=== PATIENT | female | born 1950 | race Caucasian/White ===

== ENCOUNTER → 2016-08-27 | Outpatient (CLI) | payer MEDICARE ==
--- NOTE | 2016-08-27 11:06 | KCIC ---
PROCEDURE Maxillofacial bone CT without contrast. HISTORY Chronic sinusitis. TECHNIQUE Computed tomographic images of the maxillofacial bones were obtained without contrast. One or more of the following individualized dose reduction techniques were utilized for this examination: 1. Automated exposure control; 2. Adjustment of the mA and/or kV according to patient size; 3. Use of iterative reconstruction technique. COMPARISON 07/26/2014 FINDINGS There is severe maxillary and ethmoid and moderate frontal and sphenoid sinus mucosal thickening. There is complete opacification of the left maxillary sinus. There is evidence of prior bilateral maxillary antrostomy/uncinectomy surgery. There is slight nasal septal deviation. There is paranasal sinus wall thickening due to the sequela of chronic sinusitis. There is a small amount of fluid within the left mastoid air cells. The temporomandibular joints are intact. The orbits and visualized portions of the calvarium and brain are unremarkable. IMPRESSION 1. Severe chronic pansinusitis, increased compared to the prior study. This primarily involves the left maxillary and bilateral ethmoid sinuses. 2. Findings consistent with interval maxillary antrostomy/uncinectomy surgery. Electronically signed by: Ana Bernal (Aug 27, 2016 11:05:14)
== END | disposition home or self-care (01) ==
LOC: KCIC CT 10:24
PROVIDERS: ATTEND Otolaryngology
DX: J32.9 Chronic sinusitis, unspecified (principal)
CPT/HCPCS: 70486

== ENCOUNTER 2019-03-06 08:49 | Emergency (ER) | payer MEDICARE ==
[~2019-03-06] VITALS: Ht 170.2 cm; Wt 59.0 kg
--- NOTE | 2019-03-06 09:23 | PHYS DOC ---
Past Medical History Past Medical History: Diabetes-Type II, Hypertension Additional Past Medical Histor: PULMONARY FIBROSIS, Past Surgical History: Other Additional Past Surgical Histo: NOSE AND THROAT SURGERY Alcohol Use: None Drug Use: None Adult General Chief Complaint Chief Complaint: MECHANICAL FALL [facility] HPI Patient is a 68 year old female who presents after falling about 1:30 this morning. The patient states that she went outside to take the trash out, and then at that point she went back inside a [place] tripped or she fell and hit her head on a pressor and was seeing stars, feeling nauseous, had a positive loss of consciousness, does not remember the accident. Family states she was vomiting to 4 AM. At this time she denies any pain and states is all she does not move her pain as 0 out of 10 in severity. The patient does state that she's been having some pain on her left side by her ribs. She denies taking blood thinners. She is on home oxygen, and was not wearing the oxygen at time this happened. Review of Systems Review of Systems Constitutional: Denies fever or chills [] Eyes: Denies change in visual acuity, redness, or eye pain [] HENT: Denies nasal congestion or sore throat [] Respiratory: Denies cough or shortness of breath [] Cardiovascular: No additional information not addressed in HPI [] GI: Reports nausea and vomiting earlier. Denies abdominal pain, bloody stools or diarrhea [] : Denies dysuria or hematuria [] Musculoskeletal: Denies back pain or joint pain [] Integument: Denies rash or skin lesions [] Neurologic: Denies headache, focal weakness or sensory changes [] Endocrine: Denies polyuria or polydipsia [] Complete systems were reviewed and found to be within normal limits, except as documented in this note. Allergies Allergies Allergies Coded Allergies Type Severity Reaction Last Updated Verified Xlpsuym-Naz-Zyv Reductase Inhibitor Allergy Mild RASH 03/06/19 Yes Physical Exam Physical Exam Constitutional: Well developed, well nourished, no acute distress, non-toxic appearance. [] HENT: Normocephalic, atraumatic, bilateral external ears normal, oropharynx moist, no oral exudates, nose normal. [] Eyes: PERRLA, EOMI, conjunctiva normal, no discharge. [] Neck: Normal range of motion, no tenderness, supple, no stridor. [] Cardiovascular:Heart rate regular rhythm, no murmur [] Lungs & Thorax: Bilateral breath sounds clear to auscultation, tenderness to left ribs. Abdomen: Bowel sounds normal, soft, no tenderness, no masses, no pulsatile masses. [] Skin: Warm, dry, no erythema, no rash. [] Back: No tenderness, no CVA tenderness. [] Extremities: No tenderness, no cyanosis, no clubbing, ROM intact, no edema. [] Neurologic: Alert and oriented X 3, normal motor function, normal sensory function, no focal deficits noted. [] Psychologic: Affect normal, judgement normal, mood normal. [] Current Patient Data Vital Signs Vital Signs Date Time Temp Pulse Resp B/P (MAP) Pulse Ox O2 Delivery O2 Flow Rate FiO2 03/06/19 10:05 68 18 96 03/06/19 08:52 96.7 171/100 (123) Nasal Cannula 3.0 96.7 EKG EKG [] Radiology/Procedures Radiology/Procedures [facility] [address] [place] [address] IMAGING REPORT Signed PATIENT: DEMARIO SAWANT ACCOUNT: [id number] : 1950 LOCATION: ER AGE: 68 SEX: F EXAM STATUS: REG ER ORD. PHYSICIAN: RAO ALVARADO APRN REASON: FALL, LEFT LOWER RIB PAIN PROCEDURE: RIBS LEFT AND PA CHEST EXAM: Frontal chest with 3V left rib series. HISTORY: Fall with left rib pain. COMPARISON: None. FINDINGS: Bilateral interstitial opacities are consistent with interstitial lung disease and fibrosis. There are small lung volumes on the right greater than left. There is no pneumothorax or clear pleural effusion. The heart is not enlarged. There are atherosclerotic calcifications of the aorta. There are no displaced left rib fractures. IMPRESSION: 1. No displaced left rib fractures. 2. Interstitial lung disease and fibrosis on the right greater than left. Electronically signed by: Bernie Marinelli MD (03/06/2019 10:58 AM) [facility] DICTATED and SIGNED BY: FRANCE MARINELLI MD DATE: 03/06/19 1058 [][facility] [address] [place] [address] IMAGING REPORT Signed PATIENT: DEMARIO SAWANT ACCOUNT: [id number] : 1950 LOCATION: ER AGE: 68 SEX: F EXAM STATUS: REG ER ORD. PHYSICIAN: RAO ALVARADO APRN REASON: fall PROCEDURE: CT HEAD AND CERVICAL SPINE WO CT scan of the head without contrast 03/06/2019 Clinical History: Fall. Head injury. Technique: Unenhanced, contiguous, 5 mm axial sections were obtained through the head. One or more of the following individualized dose reduction techniques were utilized for this study: 1. Automated exposure control. 2. Adjustment of the mA and/or kV according to patient size. 3. Use of iterative reconstruction technique. Findings: There is generalized parenchymal atrophy. Areas of decreased attenuation are seen within the periventricular and subcortical white matter of both cerebral hemispheres consistent with areas of small vessel ischemic disease. No acute parenchymal abnormality is seen. No extra-axial fluid collection is noted. No skull fracture is seen. Moderate to severe mucosal thickening is seen involving both maxillary sinuses, left greater than right. Patient is post resection of the medial gomes of both maxillary sinuses along with the majority of the ethmoid air cells. Impression: No acute intracranial abnormality is seen. CT scan of the cervical spine without contrast 03/06/2019 Clinical history: Fall with neck injury. Technique: Unenhanced, contiguous, 0.625 mm axial sections were obtained through the cervical spine. Axial, coronal and sagittal reconstructed images were obtained. One or more of the following individualized dose reduction techniques were utilized for this study: 1. Automated exposure control. 2. Adjustment of the mA and/or kV according to patient size. 3. Use of iterative reconstruction technique. Findings: Sagittal and coronal reconstructed images demonstrate minimal lateral curvature of the cervical spine, convex to the left. There is mild straightening of the normal cervical lordosis. Degenerative changes consisting of disc space narrowing, vertebral endplate sclerosis and mild anterior and posterior vertebral body osteophyte formation are seen involving the C5-6 disc space predominantly. Areas of honeycombing and fibrosis are seen involving the apex of the right lung. Mild to moderate atherosclerotic calcification of the left carotid bifurcation is seen. No fracture or subluxation of the cervical vertebrae seen. Degenerative changes are seen involving the uncovertebral and facet joints throughout the mid and lower cervical disc spaces. Impression: No fracture or subluxation of the cervical vertebra is identified. Electronically signed by: Noé Guevara MD (03/06/2019 9:46 AM) [facility] DICTATED and SIGNED BY: NOÉ GUEVARA MD DATE: 03/06/19 0946 Course & Med Decision Making Course & Med Decision Making Pertinent Labs and Imaging studies reviewed. (See chart for details) Patient appears to have a concussion by clinical story and picture. Will also get Chest x-ray with ribs and CT head/neck to rule out further injury. Imaging is unremarkable. Dragon Disclaimer Dragon Disclaimer This electronic medical record was generated, in whole or in part, using a voice recognition dictation system. Departure Departure Impression: Primary Impression: Fall Additional Impression: Concussion Disposition: HOME, SELF-CARE Condition: STABLE Referrals: GONZALO SIDHU MD (PCP) Patient Instructions: Concussion and Brain Injury, Fall Prevention and Home Safety Additional Instructions: Thank you for visiting [facility]. We appreciate you trusting us with your care. If any additional problems come up don't hesitate to return to visit us. Please follow up with your primary care provider so they can plan additional care if needed and know about the problem that you had. If symptoms worsen come back to the Emergency Department. Any concerning symptoms that start such as chest pain, shortness of air, weakness or numbness on one side of the body, running high fevers or any other concerning symptoms return to the ER. Please be aware that diabetes can cause your sugars to fluctuate while you are sick. This can cause additional issues. Please check your sugars often to ensure they are staying in a safe range and if you are on insulin please take as instructed by your primary care doctor. If you have any questions about this please let us know or contact your primary care provider for additional inst ruction about taking your insulin while you are sick. If you get concerned regarding your sugar while at home please do not hesitate to come back to the ER. Please rest your brain as much as possible to allow the brain to heal as we discussed. PATIENT TAKE-HOME INSTRUCTIONS ([facility]) INFORMATION FOR ADULTS You have been examined for a head injury and possible concussion. Take time off from work or school for days or until you and your health care aide think you are able to return to your usual routine. Further instructions from your health care aide: When should I return to the hospital emergency department? Sometimes serious problems develop after a head injury. Return immediately to the emergency department if you experience any of the following symptoms: ? Repeated vomiting ? Headache that gets worse and does not go away ? Loss of consciousness or unable to stay awake during times you would normally be awake ? Getting more confused, restless, or agitated ? Convulsions or seizures ? Difficulty walking or difficulty with balance ? Weakness or numbness ? Difficulty with your vision Most of all, if you have any symptom that concerns you, your family members, or friends, dont delay, see a doctor right away. Q&A. Some questions and answers about brain injuries Q. What is a concussion? A. A concussion is a type of traumatic brain injury (TBI). It is caused by a bump, blow, or jolt to the head or body that causes the head and brain to move quickly back and forth. Some of the ways you can get a concussion are when you hit your head during a fall, car crash, or sports injury. Health reproductive healthcare assistant sometime refer to concussions as mild? brain injuries because they are usually not life-threatening. Even so, their effects can be serious. Q. What should I expect once I'm home from the hospital? A. Most people with a concussion recover quickly and fully. During recovery, it is important to know that many people have a range of symptoms. Some symptoms may appear right away, while others may not be noticed for hours or even days after the injury. You may not realize you have problems until you try to do your usual activities again. Below is a list of some of the symptoms you may have: Thinking/ Remembering Difficulty thinking clearly Feeling slowed down Difficulty concentrating Difficulty remembering new information Physical Headache Nausea or vomiting (early on) Sensitivity to noise or light Feeling tired, having no energy Fuzzy or blurry vision Dizziness Balance problems Emotional/ Mood Irritability Sadness More emotional Nervousness or anxiety Sleep Sleeping more than usual Sleeping less than usual Trouble falling asleep These postconcussive? symptoms can be part of the normal healing process and are generally not signs of permanent damage or serious health problems. Most symptoms go away over time without any treatment. It is easy to become upset or afraid if you dont know what to expect or if you are having problems. Keep talking with your doctor and others about how you are feeling. Tell your health care aide if you do not think you are getting better. Q. What can I do to feel better? A. Getting plenty of rest and sleep helps the brain to heal. Do not try to do too much too fast. As you start to feel better, you can slowly and gradually return to your usual routine. Here are some other tips to help you get better: Avoid activities that are physically demanding (e.g., sports, heavy housecleaning, exercising) or require a lot of thinking or concentration (e.g., working on the computer, playing video games). Ignoring your symptoms and toughing it out? often makes symptoms worse. Ask your health care aide when you can safely drive a car, ride a bike, or operate heavy equipment. Do not drink alcohol. Q. What if I don't feel better after a week? A. If you do not feel back to normal within one week, see a health care aide who has experience treating brain injuries. Q. Should I tell my work about my injury? A. If your injury was work-related, make sure you report it right away to your employer and your workers compensation office. Q. When can I return to sports and recreational activities? A. Do not return to sports and recreational activities before talking to your health care aide. A repeat concussion that occurs before the brain has fully healed can be very dangerous and may slow your recovery or increase the chance for long-term problems. Q. How can I avoid a concussion in the future? A. There are many ways to minimize the risk of a concussion and other injuries: Wear a seat belt and use a safety seat for children. Wear a helmet that fits properly when biking, riding a motorcycle, skating, skiing, horseback riding, or playing contact sports. Prevent falls in the home by: Using grab bars in the bathroom and handrails by stairs. Placing non-slip mats in the bathtub and on floors. Removing trip hazards in the house. Improving lighting. Installing safety burch by stairs and safety guards by windows to protect young children in your home. For more information about concussion, please visit www.cdc.gov/Concussion. This fact sheet is part of the Centers for Disease Control and Preventions (CDC) Heads Up? series of publications and is based on the 2008 Clinical Policy: Neuroimaging and Decisionmaking in Adult Mild Traumatic Brain Injury in the Acute Setting, jointly produced by CDC and [facility] Problem Qualifiers Primary Impression: Fall Encounter type: initial encounter Qualified Codes: W19.XXXA - Unspecified fall, initial encounter Additional Impression: Concussion Encounter type: initial encounter Loss of consciousness presence/duration: with LOC of 30 min or less Qualified Codes: S06.0X1A - Concussion with loss of consciousness of 30 minutes or less, initial encounter RAO ALVARADO APRN Mar 06, 2019 09:23
--- NOTE | 2019-03-06 09:49 | RAD ---
CT scan of the head without contrast 03/06/2019 Clinical History: Fall. Head injury. Technique: Unenhanced, contiguous, 5 mm axial sections were obtained through the head. One or more of the following individualized dose reduction techniques were utilized for this study: 1. Automated exposure control. 2. Adjustment of the mA and/or kV according to patient size. 3. Use of iterative reconstruction technique. Findings: There is generalized parenchymal atrophy. Areas of decreased attenuation are seen within the periventricular and subcortical white matter of both cerebral hemispheres consistent with areas of small vessel ischemic disease. No acute parenchymal abnormality is seen. No extra-axial fluid collection is noted. No skull fracture is seen. Moderate to severe mucosal thickening is seen involving both maxillary sinuses, left greater than right. Patient is post resection of the medial gomes of both maxillary sinuses along with the majority of the ethmoid air cells. Impression: No acute intracranial abnormality is seen. CT scan of the cervical spine without contrast 03/06/2019 Clinical history: Fall with neck injury. Technique: Unenhanced, contiguous, 0.625 mm axial sections were obtained through the cervical spine. Axial, coronal and sagittal reconstructed images were obtained. One or more of the following individualized dose reduction techniques were utilized for this study: 1. Automated exposure control. 2. Adjustment of the mA and/or kV according to patient size. 3. Use of iterative reconstruction technique. Findings: Sagittal and coronal reconstructed images demonstrate minimal lateral curvature of the cervical spine, convex to the left. There is mild straightening of the normal cervical lordosis. Degenerative changes consisting of disc space narrowing, vertebral endplate sclerosis and mild anterior and posterior vertebral body osteophyte formation are seen involving the C5-6 disc space predominantly. Areas of honeycombing and fibrosis are seen involving the apex of the right lung. Mild to moderate atherosclerotic calcification of the left carotid bifurcation is seen. No fracture or subluxation of the cervical vertebrae seen. Degenerative changes are seen involving the uncovertebral and facet joints throughout the mid and lower cervical disc spaces. Impression: No fracture or subluxation of the cervical vertebra is identified. Electronically signed by: Noé Guevara MD (03/06/2019 9:46 AM) [facility]
[2019-03-06 10:05] VITALS: BP 119/71
--- NOTE | 2019-03-06 11:01 | RAD ---
EXAM: Frontal chest with 3V left rib series. HISTORY: Fall with left rib pain. COMPARISON: None. FINDINGS: Bilateral interstitial opacities are consistent with interstitial lung disease and fibrosis. There are small lung volumes on the right greater than left. There is no pneumothorax or clear pleural effusion. The heart is not enlarged. There are atherosclerotic calcifications of the aorta. There are no displaced left rib fractures. IMPRESSION: 1. No displaced left rib fractures. 2. Interstitial lung disease and fibrosis on the right greater than left. Electronically signed by: Bernie Marinelli MD (03/06/2019 10:58 AM) [facility]
== END 2019-03-06 11:29 | disposition home or self-care (01) ==
LOC: ER 08:49
DX: S06.0X1A Concussion with loss of consciousness of 30 minutes or less, initial encounter (principal); R11.2 Nausea with vomiting, unspecified; E11.9 Type 2 diabetes mellitus without complications; I10 Essential (primary) hypertension; Z88.8 Allergy status to other drugs, medicaments and biological substances; W01.0XXA Fall on same level from slipping, tripping and stumbling without subsequent striking against object, initial encounter; Y93.89 Activity, other specified; Y92.89 Other specified places as the place of occurrence of the external cause; Y99.8 Other external cause status; R07.81 Pleurodynia
CPT/HCPCS: 70450; 71101; 72125; 99284

== ENCOUNTER 2019-05-01 13:24 | Emergency (ER) | payer BC, MEDICARE ==
[~2019-05-01] VITALS: Ht 170.2 cm; Wt 56.7 kg
[2019-05-01] MEDS ORDERED: IV NORMAL SALINE 1000ML BAG 1,000 ML IV ONE (14:00)
[2019-05-01] MEDS ORDERED: DEXAMETHASONE 4 MG TABLET PO ONE (14:00)
[2019-05-01] MEDS ORDERED: ASPIRIN 325 MG TABLET PO ONE (14:00)
[2019-05-01 14:22] LABS: BASO # 0.1 x10^3/uL (0.0-0.2); BASO % 1 % (0-3); EOS # 0.3 x10^3/uL (0.0-0.7); EOS % 3 % (0-3); HEMATOCRIT 40.6 % (36.0-47.0); HEMOGLOBIN 13.7 g/dL (12.0-15.5); LYMPH # 2.4 x10^3/uL (1.0-4.8); LYMPH % 25 % (24-48); MEAN CORPUSCULAR HEMOGLOBIN 32 pg (25-35); MEAN CORPUSCULAR HGB CONC 34 g/dL (31-37); MEAN CORPUSCULAR VOLUME 95 fL (79-100); MONO # 0.8 x10^3/uL (0.0-1.1); MONO % 8 % (0-9); NEUT # 6.3 x10^3/uL (1.8-7.7); NEUT % 64 % (31-73); PLATELET COUNT 233 x10^3/uL (140-400); RED BLOOD COUNT 4.29 x10^6/uL (3.50-5.40); RED CELL DISTRIBUTION WIDTH 13.4 % (11.5-14.5); WHITE BLOOD COUNT 9.9 x10^3/uL (4.0-11.0)
[2019-05-01 14:40] LABS: CREATININE 0.6 mg/dL (0.6-1.0); GFR 99.4
[2019-05-01 14:45] LABS: ALBUMIN/GLOBULIN RATIO 0.8 (1.0-1.7); MAGNESIUM 1.5 mg/dL (1.8-2.4); TOTAL BILIRUBIN 0.4 mg/dL (0.2-1.0); TOTAL PROTEIN 6.8 g/dL (6.4-8.2)
--- NOTE | 2019-05-01 14:46 | EKG ---
[facility] [address] [place] [address] Test Date: 2019-05-01 Test Time: 14:08:41 Pat Name: DEMARIO SAWANT Department: Room: Gender: F [employer]: : 1950 Requested By: RAO MCDUFFIE Order Number: [id number] Reading MD: Measurements Intervals [place] Rate: 71 P: 28 FL: 124 QRS: -7 QRSD: 88 T: -34 QT: 436 QTc: 479 Interpretive Statements SINUS RHYTHM LEFTWARD AXIS R-S TRANSITION ZONE IN V LEADS DISPLACED TO THE LEFT T ABNORMALITY IN ANTERIOR LEADS INFEROLATERAL LEADS PROLONGED QT NON SPECIFIC ST DEPRESSION ABNORMAL ECG No previous ECG available for comparison
--- NOTE | 2019-05-01 15:03 | RAD ---
EXAM: Chest, 2 views. HISTORY: Shortness of breath. COMPARISON: 03/06/2019. FINDINGS: 2 views of the chest are obtained. There are stable coarse diffuse increased interstitial markings primarily within the right upper lobe distribution. There is no pleural effusion or pneumothorax. There is a stable prominent cardiac silhouette. IMPRESSION: Stable coarse diffuse increased interstitial markings due to chronic interstitial lung disease. The possibility of superimposed interstitial infiltrate is not excluded. There is no consolidation. Electronically signed by: Ana Bernal MD (05/01/2019 3:00 PM) [place] [id number]
[2019-05-01 15:47] LABS: BILIRUBIN,URINE NEGATIVE (NEG); CLARITY,URINE CLOUDY; COLOR,URINE YELLOW; NITRITE,URINE NEGATIVE (NEG); PROTEIN,URINE 30 mg/dL (NEG-TRACE)
[2019-05-01 15:54] LABS: RBC,URINE 0 /HPF (0-2)
[2019-05-01 15:55] LABS: BACTERIA,URINE FEW /HPF (0-FEW); SQUAMOUS EPITHELIAL CELL,UR OCC /LPF
[2019-05-01 16:08] VITALS: BP 149/77
--- NOTE | 2019-05-01 17:13 | PHYS DOC ---
Past Medical History Past Medical History: Anxiety, Diabetes-Type II, High Cholesterol, Hypertension Additional Past Medical Histor: PULMONARY FIBROSIS, neuropathy, home oxygen Past Surgical History: Other Additional Past Surgical Histo: NOSE AND THROAT SURGERY Additional Information: quit smoking 1999 Alcohol Use: None Drug Use: None Adult General Chief Complaint Chief Complaint: SYNCOPE HPI HPI Patient is a 60-year-old female with past medical history of high blood pressure, high cholesterol, diabetes, and idiopathic pulmonary fibrosis is presenting to the emergency department via EMS with an episode of syncope. He states that she was in line at her doctor's office today when she started to feel dizzy and that his last thing she remembers. Daughter is at bedside to provide the rest of history. Daughter states that she was standing next to the patient in line and noticed that she looked funny and helped her to the ground. Daughter states that she did not fall, hit her head, but she didn't lose consciousness. Patient states that she has a history of syncopal episodes in the last 3 months. Patient states that she thinks that her baseline oxygen needs to be increased because before her episodes of syncope she feels short of breath. Patient denies chest pain, shortness of breath now on 4 L via nasal cannula, abdominal pain, constipation, diarrhea, fever, chills, headache, and confusion. Review of Systems Review of Systems Constitutional: Denies fever or chills Eyes: Denies redness or eye pain HENT: Denies nasal congestion or sore throat Respiratory: Denies cough, reports shortness of breath Cardiovascular: Denies chest pain or palpitations GI: Denies abdominal pain, nausea, or vomiting : Denies dysuria or hematuria Musculoskeletal: Denies back pain or joint pain Integument: Denies rash or skin lesions Neurologic: Denies focal weakness or sensory changes, reports headache Complete systems were reviewed and found to be within normal limits, except as documented in this note. Current Medications Current Medications Current Medications Medications (Trade) Dose Ordered Sig/Onel Start Time Stop Time Status Last Admin Dose Admin Aspirin (Amalia Aspirin) 325 mg 1X ONCE 05/01/19 14:00 05/01/19 14:01 DC 05/01/19 14:27 325 MG Dexamethasone (Decadron) 10 mg 1X ONCE 05/01/19 14:00 05/01/19 14:01 DC 05/01/19 14:27 10 MG Magnesium Chloride (Mag Delay) 64 mg 1X ONCE 05/01/19 17:15 05/01/19 17:16 DC 05/01/19 17:19 64 MG Sodium Chloride 1,000 ml @ 1,000 mls/hr 1X ONCE 05/01/19 14:00 05/01/19 14:59 DC 05/01/19 14:28 1,000 MLS/HR Allergies Allergies Allergies Coded Allergies Type Severity Reaction Last Updated Verified Xtdjznw-Lod-Jqe Reductase Inhibitor Allergy Mild RASH 03/06/19 Yes Physical Exam Physical Exam Constitutional: Well developed, well nourished, no acute distress, non-toxic appearance HENT: Normocephalic, atraumatic, oropharynx moist Eyes: PERRL, EOMI, conjunctiva normal, no discharge Neck: Normal range of motion, no tenderness, supple Cardiovascular: Heart rate normal, regular rhythm Lungs & Thorax: Bilateral breath sounds clear to auscultation, no wheezing, patient mildly dyspneic on 4 L via nasal cannula Abdomen: Soft, no tenderness Skin: Warm, dry, no erythema, no rash Back: No tenderness, no CVA tenderness Extremities: No tenderness, ROM intact, no edema Neurologic: Alert and oriented X 3, normal motor function, normal sensory function, no focal deficits noted Psychologic: Affect normal, judgement normal, mood normal Current Patient Data Vital Signs Vital Signs Date Time Temp Pulse Resp B/P (MAP) Pulse Ox O2 Delivery O2 Flow Rate FiO2 05/01/19 16:08 68 18 149/77 (101) 97 Nasal Cannula 4.0 05/01/19 13:30 97.7 97.7 Lab Values Laboratory Tests Test 05/01/19 14:16 05/01/19 15:39 White Blood Count 9.9 x10^3/uL (4.0-11.0) Red Blood Count 4.29 x10^6/uL (3.50-5.40) Hemoglobin 13.7 g/dL (12.0-15.5) Hematocrit 40.6 % (36.0-47.0) Mean Corpuscular Volume 95 fL (79-100) Mean Corpuscular Hemoglobin 32 pg (25-35) Mean Corpuscular Hemoglobin Concent 34 g/dL (31-37) Red Cell Distribution Width 13.4 % (11.5-14.5) Platelet Count 233 x10^3/uL (140-400) Neutrophils (%) (Auto) 64 % (31-73) Lymphocytes (%) (Auto) 25 % (24-48) Monocytes (%) (Auto) 8 % (0-9) Eosinophils (%) (Auto) 3 % (0-3) Basophils (%) (Auto) 1 % (0-3) Neutrophils # (Auto) 6.3 x10^3/uL (1.8-7.7) Lymphocytes # (Auto) 2.4 x10^3/uL (1.0-4.8) Monocytes # (Auto) 0.8 x10^3/uL (0.0-1.1) Eosinophils # (Auto) 0.3 x10^3/uL (0.0-0.7) Basophils # (Auto) 0.1 x10^3/uL (0.0-0.2) Sodium Level 143 mmol/L (136-145) Potassium Level 4.0 mmol/L (3.5-5.1) Chloride Level 104 mmol/L (98-107) Carbon Dioxide Level 29 mmol/L (21-32) Anion Gap 10 (6-14) Blood Urea Nitrogen 12 mg/dL (7-20) Creatinine 0.6 mg/dL (0.6-1.0) Estimated GFR (Cockcroft-Gault) 99.4 BUN/Creatinine Ratio 20 (6-20) Glucose Level 170 mg/dL (70-99) H Calcium Level 9.0 mg/dL (8.5-10.1) Magnesium Level 1.5 mg/dL (1.8-2.4) L Total Bilirubin 0.4 mg/dL (0.2-1.0) Aspartate Amino Transferase (AST) 21 U/L (15-37) Alanine Aminotransferase (ALT) 18 U/L (14-59) Alkaline Phosphatase 79 U/L (46-116) Creatine Kinase 67 U/L (26-192) Creatine Kinase MB (Mass) 1.6 ng/mL (0.0-3.6) Creatine Kinase MB Relative Index 2.4 % (0-4) Troponin I Quantitative < 0.017 ng/mL (0.000-0.055) EC-Gpq-M-Type Natriuretic Peptide 3560 pg/mL (0-124) H Total Protein 6.8 g/dL (6.4-8.2) Albumin 3.0 g/dL (3.4-5.0) L Albumin/Globulin Ratio 0.8 (1.0-1.7) L Lipase 288 U/L (73-393) Urine Collection Type Void Urine Color Yellow Urine Clarity Cloudy Urine pH 7.0 Urine Specific Disney 1.015 Urine Protein 30 mg/dL (NEG-TRACE) Urine Glucose (UA) Negative mg/dL (NEG) Urine Ketones (Stick) Negative mg/dL (NEG) Urine Blood Negative (NEG) Urine Nitrite Negative (NEG) Urine Bilirubin Negative (NEG) Urine Urobilinogen Dipstick 1.0 mg/dL (0.2 mg/dL) Urine Leukocyte Esterase Small (NEG) Urine RBC 0 /HPF (0-2) Urine WBC 1-4 /HPF (0-4) Urine Squamous Epithelial Cells Occ /LPF Urine Bacteria Few /HPF (0-FEW) Urine Mucus Slight /LPF Laboratory Tests 05/01/19 14:16 Laboratory Tests 05/01/19 14:16 EKG EKG EKG @ 1408 shows sinus rhythm at 72 BPM, left axis deviation, prolonged QT @ 479 corrected, and no ST elevation Radiology/Procedures Radiology/Procedures [] Course & Med Decision Making Course & Med Decision Making Pertinent Labs and Imaging studies reviewed. (See chart for details) Patient is a 68 YO F with PMH of diabetes, HTN, high cholesterol, and IPF that is presenting to the ED with a chief complaint of syncope. Patient was seen and examined at bedside. Physical exam was benign. Labs and imaging ordered. CXR showed no acute process. Labs were significant for increased BNP but other littlejohn at baseline. EKG @ 1408 shows sinus rhythm at 72 BPM, left axis deviation, prolonged QT @ 479 corrected, and no ST elevation Mg slightly low, replacement given. Pt offered admission for further evaluation of syncope given PMH but felt comfortably to go home and follow up with PCP and pulmonology as syncope is most likely due to increasing oxygen requirements at baseline. Patient stable for discharge with outpatient follow-up with PCP. Discussed findings and plan with patient and family, who acknowledge understanding and agreement. Dragon Disclaimer Dragon Disclaimer This electronic medical record was generated, in whole or in part, using a voice recognition dictation system. Departure Departure Impression: Primary Impression: Syncope Additional Impression: Pulmonary fibrosis Disposition: HOME, SELF-CARE Condition: STABLE Referrals: GONZALO SIDHU MD (PCP) Patient Instructions: Pulmonary Fibrosis, Idiopathic, Syncope, [id number] Problem Qualifiers Primary Impression: Syncope Syncope type: unspecified Qualified Codes: R55 - Syncope and collapse RAO MCDUFFIE DO May 01, 2019 17:13
[2019-05-01] MEDS ORDERED: MAGNESIUM CHLORIDE ER 64 MG TABLET.ER PO ONE (17:15)
== END 2019-05-01 17:35 | disposition home or self-care (01) ==
LOC: ER 13:24
DX: R55 Syncope and collapse (principal); J84.10 Pulmonary fibrosis, unspecified; F41.9 Anxiety disorder, unspecified; E78.00 Pure hypercholesterolemia, unspecified; I10 Essential (primary) hypertension; E11.40 Type 2 diabetes mellitus with diabetic neuropathy, unspecified; Z87.891 Personal history of nicotine dependence; Z88.8 Allergy status to other drugs, medicaments and biological substances
CPT/HCPCS: 36415; 71046; 80053; 81001; 82553; 83690; 83735; 83880; 84484; 85025; 87086; 93005; 96360; 99285; J7030; J8540

== ENCOUNTER 2019-05-17 17:17 | Emergency (ER) | payer BC, MEDICARE ==
[~2019-05-17] VITALS: Ht 170.2 cm; Wt 57.2 kg
[2019-05-17 18:00] VITALS: BP 164/101
--- NOTE | 2019-05-17 19:11 | PHYS DOC ---
Past Medical History Past Medical History: Anxiety, Diabetes-Type II, High Cholesterol, Hypertension Additional Past Medical Histor: PULMONARY FIBROSIS, neuropathy, home oxygen Past Surgical History: Other Additional Past Surgical Histo: NOSE AND THROAT SURGERY Alcohol Use: None Drug Use: None Adult General Chief Complaint Chief Complaint: LACERATION/AVULSION HPI HPI Patient is a 68 year old female who presents with states she was walking out the front door and her oxygen cord got tangled around her leg and she tripped and fell hitting her right forehead on to the cement on the porch. She rates her pain a 5 out of 10. She denies LOC, visual changes, nausea, vomiting, dizziness, chest pain, shortness of air, back pain, neck pain, rib pain, numbness or tingling, weakness, headache. She states she is having burning with alert laceration is and she rates it at a 5 out of 10. Review of Systems Review of Systems Integument: Laceration above right eye brow. Denies rash or skin lesions [] All other systems were reviewed and found to be within normal limits, except as documented in this note. Allergies Allergies Allergies Coded Allergies Type Severity Reaction Last Updated Verified Kzqyutm-Wri-Ibx Reductase Inhibitor Allergy Mild RASH 03/06/19 Yes Physical Exam Physical Exam Constitutional: Well developed, well nourished, no acute distress, non-toxic appearance. [] HENT: Normocephalic, atraumatic, bilateral external ears normal, oropharynx moist, no oral exudates, nose normal. [] Eyes: PERRLA, EOMI, conjunctiva normal, no discharge. [] Neck: Normal range of motion, no tenderness, supple, no stridor. [] Cardiovascular:Heart rate regular rhythm, no murmur [] Lungs & Thorax: Bilateral breath sounds clear to auscultation [] Abdomen: Bowel sounds normal, soft, no tenderness, no masses, no pulsatile masses. [] Skin: Laceration above right eye brow. Warm, dry, no erythema, no rash. [] Back: No tenderness, no CVA tenderness. [] Extremities: No tenderness, no cyanosis, no clubbing, ROM intact, no edema. [] Neurologic: Alert and oriented X 3, normal motor function, normal sensory function, no focal deficits noted. [] Psychologic: Affect normal, judgement normal, mood normal. [] Current Patient Data Vital Signs Vital Signs Date Time Temp Pulse Resp B/P (MAP) Pulse Ox O2 Delivery O2 Flow Rate FiO2 05/17/19 18:00 98.7 83 19 164/101 (122) 91 Nasal Cannula 3.0 98.7 EKG EKG [] Radiology/Procedures Radiology/Procedures [] Impressions: [facility] [address] [place] [address] IMAGING REPORT Signed PATIENT: DEMARIO SAWANT ACCOUNT: [id number] : 1950 LOCATION: ER AGE: 68 SEX: F EXAM STATUS: REG ER ORD. PHYSICIAN: PRETTY JAIN APRN REASON: FALL, LAC TO RIGHT FOREHEAD PROCEDURE: CT HEAD AND MAXILLOFACIAL WO Exam: CT head, maxillofacial and cervical spine without contrast INDICATION: Fall TECHNIQUE: Sequential axial images through the head, neck facial and cervical spine were obtained without the administration of IV contrast. Comparisons: 03/06/2019 FINDINGS: Head: No focal parenchymal lesion or hemorrhage is identified. There is no midline shift or sulcal effacement. No acute vascular territory infarction is identified. Fabian-white distinction is preserved. The ventricular system is within normal limits without compression hydrocephalus. The basal cisterns are well maintained. Face: Extracranial soft tissue contusion overlying the right superior orbital ridge. Sinus surgery noted bilaterally. There is mucosal thickening of the maxillary sinuses bilaterally. The visualized portions of the paranasal sinuses and mastoid air cells are well-pneumatized. No acute fractures. Cervical spine: Vertebral body heights and alignment are well-maintained. Fracture to the cervical spine is not identified. Multilevel spondylotic change in cervical spine with degenerative disc disease greatest at C5-C6. Mild bilateral facet arthropathy is also noted in the cervical spine. Visualized paraspinal soft tissues are unremarkable. IMPRESSION: 1. Extra cranial soft tissue contusion overlying the right superior orbital ridge. No underlying osseous abnormality. 2. No acute intracranial noted. 3. Negative CT C-spine for acute traumatic injury. Exposure: One or more of the following in the visualized dose reduction techniques were utilized for this examination: 1. Automated exposure control 2. Adjustment of the MA and/or KV according to patient size Use of iterative of reconstructive technique Electronically signed by: Leon Beaver MD (05/17/2019 8:18 PM) [facility] DICTATED and SIGNED BY: LEON BEAVER MD DATE: 05/17/192017 Course & Med Decision Making Course & Med Decision Making . PERRLA. Alert and oriented. Skin pink warm and dry. Ambulatory with a steady gait. Aches in full clear sentences. Head and skull are atraumatic except for the laceration above the right eyebrow. Is full range of motion of her neck and no focal point bony tenderness to the cervical spine, thoracic spine, lumbar spine. No rib tenderness with palpation or crepitus. Lungs are clear to auscultation all lobes. Patient has no other complaints of any thing hurting on her body. Patient moves all extremities within normal limits. Laceration Repair by me: Anesthesia: 1% lidocaine locally Location: Right forehead Tendon/Joint/Nerves: No injury Foreign body: None detected after copious irrigation with saline and chlorhexidine and exploration Technique: Beauregard hernandez Complexity: No subcutaneous sutures/mucosal repair/edge excision Post Closure Length: 2 cm Patient's bleeding was easily controlled in the department and there is no indication of anemia. No evidence of compartment syndrome, neurologic injury, vascular injury, open joint, tendon laceration, or foreign body. Patient is appropriate for outpatient follow up. 48 hour wound check. Scar minimization instructions given. Dragon Disclaimer Dragon Disclaimer This electronic medical record was generated, in whole or in part, using a voice recognition dictation system. Departure Departure Impression: Primary Impression: Laceration Additional Impression: Fall Disposition: 01 HOME, SELF-CARE Condition: STABLE Referrals: GONZALO SIDHU MD (PCP) Patient Instructions: Facial Laceration, [id number], Laceration Care, Adult Additional Instructions: Follow up with primary care provider. Do not apply any ointments to the laceration area. Watch for signs of infection. Take Tylenol for your pain. Problem Qualifiers Additional Impression: Fall Encounter type: initial encounter Qualified Codes: W19.XXXA - Unspecified fall, initial encounter PRETTY JAIN RN ANESTHETIST May 17, 2019 19:11
--- NOTE | 2019-05-17 20:21 | RAD ---
Exam: CT head, maxillofacial and cervical spine without contrast INDICATION: Fall TECHNIQUE: Sequential axial images through the head, neck facial and cervical spine were obtained without the administration of IV contrast. Comparisons: 03/06/2019 FINDINGS: Head: No focal parenchymal lesion or hemorrhage is identified. There is no midline shift or sulcal effacement. No acute vascular territory infarction is identified. Fabian-white distinction is preserved. The ventricular system is within normal limits without compression hydrocephalus. The basal cisterns are well maintained. Face: Extracranial soft tissue contusion overlying the right superior orbital ridge. Sinus surgery noted bilaterally. There is mucosal thickening of the maxillary sinuses bilaterally. The visualized portions of the paranasal sinuses and mastoid air cells are well-pneumatized. No acute fractures. Cervical spine: Vertebral body heights and alignment are well-maintained. Fracture to the cervical spine is not identified. Multilevel spondylotic change in cervical spine with degenerative disc disease greatest at C5-C6. Mild bilateral facet arthropathy is also noted in the cervical spine. Visualized paraspinal soft tissues are unremarkable. IMPRESSION: 1. Extra cranial soft tissue contusion overlying the right superior orbital ridge. No underlying osseous abnormality. 2. No acute intracranial noted. 3. Negative CT C-spine for acute traumatic injury. Exposure: One or more of the following in the visualized dose reduction techniques were utilized for this examination: 1. Automated exposure control 2. Adjustment of the MA and/or KV according to patient size Use of iterative of reconstructive technique Electronically signed by: Leon Leonard MD (05/17/2019 8:18 PM) [facility]
== END 2019-05-17 20:46 | disposition home or self-care (01) ==
LOC: ER 17:17
DX: S01.81XA Laceration without foreign body of other part of head, initial encounter (principal); R51 Headache; E78.00 Pure hypercholesterolemia, unspecified; E11.40 Type 2 diabetes mellitus with diabetic neuropathy, unspecified; I10 Essential (primary) hypertension; Z91.041 Radiographic dye allergy status; W01.198A Fall on same level from slipping, tripping and stumbling with subsequent striking against other object, initial encounter; Y93.89 Activity, other specified; Y92.89 Other specified places as the place of occurrence of the external cause; Y99.8 Other external cause status
CPT/HCPCS: 12011; 70450; 70486; 72125; 99284